=== PATIENT | male | born 1955 | race Caucasian/White ===

== ENCOUNTER 2017-01-10 16:22 | Emergency (ER) | payer OTHER | END 2017-01-10 16:55 | disposition home or self-care (01) | LOC: CFTX 16:22 | DX: S61.412A Laceration without foreign body of left hand, initial encounter (principal); E11.9 Type 2 diabetes mellitus without complications; F17.210 Nicotine dependence, cigarettes, uncomplicated; Z23 Encounter for immunization; W26.0XXA Contact with knife, initial encounter; Y92.009 Unspecified place in unspecified non-institutional (private) residence as the place of occurrence of the external cause | CPT/HCPCS: 12001; 90471; 90715; 99283 ==